=== PATIENT | female | born 1985 ===

== ENCOUNTER 2022-04-11 15:57 | Emergency (ER) | payer OTHER ==
[~2022-04-11] VITALS: Ht 165.1 cm; Wt 59.0 kg
[2022-04-11] MEDS ORDERED: ALBUTEROL (0.083%) 2.5MG/3ML NEB HHN STA (16:11)
[2022-04-11] MEDS ORDERED: IPRATROPIUM BROMIDE (0.02%) 0.5MG/2.5ML NEB HHN STA (16:11)
[2022-04-11] MEDS ORDERED: PREDNISONE 20MG TABLET PO ONE (16:15)
[2022-04-11] MEDS ORDERED: ALBU05 NEB (17:47)
[2022-04-11] MEDS ORDERED: ALBU6.7H9 INH (17:47)
[2022-04-11] MEDS ORDERED: P20 MT (17:47)
[2022-04-11 18:00] VITALS: BP 132/81
== END 2022-04-11 20:24 | disposition home or self-care (01) ==
LOC: ER 15:57
DX: J45.901 Unspecified asthma with (acute) exacerbation (principal)
CPT/HCPCS: 93005; 94640; 94660; 99283; J7512; Z7610